=== PATIENT | male | born 1995 ===

== ENCOUNTER 2018-05-02 15:12 | Emergency (ER) | payer MEDICAID ==
[2018-05-02 15:45] VITALS: RESP 18
[2018-05-02] MEDS ORDERED: Morphine 4 mg/ml ISec IM STA (16:09)
[2018-05-02] MEDS ORDERED: Amoxicillin-Clav 875-125 mg Tab PO STA (16:09)
[2018-05-02] MEDS ORDERED: TDAP Vaccine 0.5 mL Syr IM ONE (16:09)
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
[2018-05-02 19:24] VITALS: BP 132/75; PULSE 82; TEMP 97.9; O2SAT 99
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
== END 2018-05-02 19:24 | disposition home or self-care (01) ==
LOC: MERGE 15:12 → ED 15:12
DX: S21.219A Laceration without foreign body of unspecified back wall of thorax without penetration into thoracic cavity, initial encounter (principal); S51.012A Laceration without foreign body of left elbow, initial encounter; S40.211A Abrasion of right shoulder, initial encounter; S80.211A Abrasion, right knee, initial encounter; Y09 Assault by unspecified means; S31.159A Open bite of abdominal wall, unspecified quadrant without penetration into peritoneal cavity, initial encounter; S31.153A Open bite of abdominal wall, right lower quadrant without penetration into peritoneal cavity, initial encounter; Y04.1XXA Assault by human bite, initial encounter; Z23 Encounter for immunization
CPT/HCPCS: 12005; 70450; 71046; 73030; 73560; 90471; 90715; 96372; 99284; J2270

== ENCOUNTER 2018-05-11 18:55 | Emergency (ER) | payer MEDICAID ==
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
[2018-05-11 20:44] VITALS: BP 127/87; PULSE 77; RESP 20; TEMP 98.7; O2SAT 100
== END 2018-05-11 20:45 | disposition home or self-care (01) ==
LOC: ED 18:55
DX: Z48.02 Encounter for removal of sutures (principal); I10 Essential (primary) hypertension